=== PATIENT | male | born 1970 | race Caucasian/White ===

== ENCOUNTER 2016-09-17 21:25 | Inpatient (IN) | payer OTHER ==
--- NOTE | ~2016-09-17 | HP ---
Unit #: [id number] #: [id number] Patient: MICHEL GARCIA [id number] [place] [address] [id number] I MR#: [id number] NAME: MICHEL GARCIA ROOM: P183 Age: 46 Sex: M Admission Date: 09/17/2016 : 1970 Attending Physician: Uday Wu M.D. Admitting Physician: Uday Wu M.D. Primary Care Physician: Primary Care Physician No HISTORY AND PHYSICAL HISTORY OF PRESENT ILLNESS Michel is a 46 year old admitted to [facility] because of his abuse of alcohol. PAST MEDICAL HISTORY 1. Long history of alcohol abuse. 2. History of withdrawal seizures. 3. History of head and neck cancer. a. Resection left side of his neck, 2015 with muscle graft from his left arm. PAST SURGICAL HISTORY As above ALLERGIES No known drug allergies. SOCIAL HISTORY He smokes one-half pack per day. Drinks at least a six pack on a daily basis and denies illicit drug use. FAMILY HISTORY Medically noncontributory. REVIEW OF SYSTEMS CONSTITUTIONAL: No fever or chills. HEENT: Denies any sore throat, ear pain or runny nose. CARDIOVASCULAR: Denies chest pain, irregular heart rhythm or palpitations. CHEST: Denies shortness of breath or cough. No hemoptysis. GASTROINTESTINAL: Denies nausea, vomiting, diarrhea or chronic constipation. ENDOCRINE: Denies history of increased thirst or urination. No recent significant weight loss or gain. GENITOURINARY: Denies dysuria, frequency, or hematuria. SKIN: Denies any rashes. HEMATOLOGIC: Denies history of increased bleeding or bruising. MUSCULOSKELETAL: Denies any hot, swollen joints. No generalized muscle pain. NEUROLOGIC: Denies problems with vision or speech. No frequent, severe headaches. No numbness, tingling or weakness in any extremities. Denies loss of bladder or bowel control. CURRENT MEDICATIONS Detox protocol Unit #: [id number] #: [id number] Patient: MICHEL GARCIA PHYSICAL EXAMINATION GENERAL: Alert, well-nourished, in no apparent distress. VITAL SIGNS: Blood pressure 117/84, heart rate 80, respirations 16, temperature 98.6. WEIGHT: 147 pounds. HEIGHT: 5'7". SKIN: Warm and dry without rash or lesion. HEENT: Normocephalic. TMs not viewed. Oral and nasal passages clear. Conjunctivae clear. Pupils equal, round and reactive to light and accommodation. Extraocular movements intact. NECK: Supple without lymphadenopathy or thyromegaly. HEART: Regular rate and rhythm without murmur. LUNGS: Clear. ABDOMEN: Soft, nontender. : Not done. EXTREMITIES: No evidence of cyanosis, clubbing or edema. Moves all extremities without focal deficit. NEUROLOGICAL: Grossly within normal limits. Cranial Nerves: II: Visual grimes are intact. III, IV AND : Extraocular movements are intact. Pupils are equal, round and reactive to light. V: Facial sensation is grossly normal. VII: Facial movements and expression are normal. VIII: Auditory acuity grossly intact. IX, X: Uvula is midline. Phonation is normal. XI: Patient shrugs shoulders and turns head normally. XII: Tongue protrudes in the midline. Sensory and Motor Function: Sensory and motor sensation is grossly normal. Motor: moves all extremities well. Coordination: Gait is normal. Deep Tendon Reflexes: Intact. IMPRESSION Psychiatric admission RECOMMENDATIONS PSYCHIATRIC: Per psychiatrist. MEDICAL: I see no contraindications to participating in facility's activities. MEDICAL PROGNOSIS Good. MEDICAL CONDITION Stable. Dictated by... Maricel DoeAKashif-Thais. for Sridevi Irene/patricia TD: 09/19/2016 00:38 JOB #: [id number] Unit #: [id number] #: [id number] Patient: MICHEL GARCIA HISTORY AND PHYSICAL X Maryanne Ceja HISTORY AND PHYSICAL
--- NOTE | ~2016-09-17 | DS ---
Unit #: [id number] #: [id number] [facility]: [facility] [id number] [facility] [address] [place] [address] [id number] I MR#: [id number] NAME: MICHEL GARCIA ROOM: [facility] Age: 46 Sex: M Admission Date: 09/17/2016 : 1970 Discharge Date: 09/21/2016 Attending Physician: Uday Wu M.D. Primary Care Physician: Primary Care Physician No DISCHARGE SUMMARY IDENTIFYING DATA Mr. Garcia is a 46-year-old white male, who was self-referred to the hospital. DISCHARGE DIAGNOSES Psychiatric: Alcohol dependence, moderate, in acute withdrawals; alcohol-induced mood disorder. Medical: Alcohol withdrawal seizure. Stressors: Moderate psychosocial stressors. HISTORY OF PRESENT ILLNESS Please see initial psychiatric evaluation for details. PAST PSYCHIATRIC HISTORY Please see initial psychiatric evaluation for details. PAST MEDICAL HISTORY Please see initial psychiatric evaluation for details. HOSPITAL COURSE The patient was admitted to the adult chemical dependency unit at [facility] and was oriented to the hospital environment. Routine p.r.n. medications were initiated, and he was started on alcohol detox protocol and was seem to be actively detoxing and having some hallucinations and Seroquel was started as an antipsychotic to help him with sleep as he was , however, he was decompensating and with significant medical complication was sent out from the Emergency Room at [facility] where he did end up getting hospitalized and as such was discharged from my care. DISCHARGE MEDICATIONS None. DISCHARGE CONDITION Stable. PROGNOSIS Guarded. Dictated by... Uday Wu M.D. IAA/modl Unit #: [id number] #: [id number] Patient: MICHEL GARCIA TD: 10/25/2016 00:31 JOB #: [id number] DISCHARGE SUMMARY Page 1 of 1 X Uday Wu MD X DISCHARGE SUMMARY
--- NOTE | ~2016-09-17 | PN ---
Unit #: [id number] #: [id number] Patient: MICHEL GARCIA [id number] [facility] [address] [place] [address] [id number] I MR#: [id number] NAME: MICHEL GARCIA ROOM: P174 Age: 46 Sex: M Admission Date: 09/17/2016 : 1970 Attending Physician: Uday Wu M.D. Admitting Physician: Uday Wu M.D. Primary Care Physician: Primary Care Physician Bharti GOMEZ NOTES DATE OF SERVICE: 09/19/2016 SUBJECTIVE Mr. Garcia is a 46-year-old white male with substance abuse and mood disorder, who was seen today and chart was reviewed, and case was discussed with the staff. He was seen to be anxious, withdrawn, and in distress and discomfort as he goes through detox. Meanwhile, he has been cooperative with treatment recommendations and has been taking medications and tolerating them fairly well with no reported side effects. MENTAL STATUS EXAMINATION Middle-aged white male, who was casually dressed with fair personal hygiene, appears to be in no acute distress or discomfort. He was awake and alert on interaction with intact orientation. His mood was anxious with a congruent affect. He denies any suicidal or homicidal ideations. His insight and judgment remain slightly impaired. TREATMENT PLAN 1. We will continue on his current medications and treatment protocol. We will monitor his response to medications and make further adjustments as needed. 2. We will continue to follow up. Dictated by... Sridevi Wu/enzo TD: 09/20/2016 02:25 JOB #: [id number] MARIA LUZ PROGRESS NOTES X Uday Wu MD PROGRESS NOTE
--- NOTE | ~2016-09-17 | PN ---
Unit #: [id number] #: [id number] Patient: MICHEL GARCIA [id number] [facility] [address] [place] [address] [id number] I MR#: [id number] NAME: MICHEL GARCIA ROOM: P174 Age: 46 Sex: M Admission Date: 09/17/2016 : 1970 Attending Physician: Uday Wu M.D. Admitting Physician: Uday Wu M.D. Primary Care Physician: Primary Care Physician Bharti GOMEZ NOTES DATE OF SERVICE: 09/21/2016 SUBJECTIVE Mr. Garcia is a 46-year-old white male, who was seen today and chart was reviewed, and case was discussed with the staff. He was with acute delirium tremens with confusion, disorientation, and has been on one-to-one level of precaution, once again with lying on bed and was pricking pins and we have also initiated Seroquel and appears that he has slept somewhat better than the night before, as such we will continue him on his current level of precautions and we will monitor his response and make further adjustments as needed. Dictated by... Sridevi Wu/veral TD: 09/21/2016 23:11 JOB #: [id number] MARIA LUZ GOMEZ NOTES X Uday Wu MD PROGRESS NOTE
--- NOTE | ~2016-09-17 | PA ---
Unit #: [id number] #: [id number] Patient: MICHEL GARCIA [id number] [facility] [address] [place] [address] [id number] I MR#: [id number] NAME: MICHEL GARCIA ROOM: P183 Age: 46 Sex: M Admission Date: 09/17/2016 : 1970 Date of Assessment: Attending Physician: Uday Wu M.D. Admitting Physician: Uday Wu M.D. Primary Care Physician: Primary Care Physician No PSYCHIATRIC ASSESSMENT DATE OF SERVICE 09/18/2016 IDENTIFYING DATA Mr. Garcia is a 46-year-old white male who is a resident of [place], [place] and was brought to the hospital by his son and his sister. CHIEF COMPLAINT "I'm drinking vodka." HISTORY OF PRESENT ILLNESS Mr. Garcia is a 46-year-old white male with a history of alcohol dependence, who was brought to the hospital by his family with a blood alcohol level of 0.221 and he reports that he is here for his alcohol use and that he drinks 2 to 3 shots of vodka and drinks beer and reports that he may have had some shots as well today, but he cannot recall. He reports that he drinks about a half a gallon of vodka a day with mixed orange juice as well as beer. The patient reports that drinking has been an issue for him for over 20 or 30 years and reports that he was diagnosed with throat cancer and he had surgery on his left side of the throat and wisdom teeth were taken out and had a metal placed in his face and jaw and due to this, the patient reports that he was on pain medication. He stopped drinking and however, they stopped his pain medication. He began drinking to help with the pain. He reports that he still requires a surgery in the neck to remove lymph nodes, but they would not do it until he was detoxicated from alcohol. He reports he has a history of severe withdrawal seizures, dysphoric feelings like needles in his arms and each in his body, sensitive to light, anxiety, and restlessness and as such, recommendation for inpatient level of care for medical detoxification was made. SUBSTANCE ABUSE HISTORY The patient reports alcohol to be his drug of choice. He reports that he has been drinking since he was 14 years old and currently he has been drinking half a gallon of vodka with mixed drinks and some beers. He denies any other drug abuse. PAST PSYCHIATRIC HISTORY The patient has not had any prior inpatient or outpatient psychiatric or chemical dependency treatment. Review of the medical records indicate that currently he is not active in any treatment program. He is not seeing a psychiatrist and he is not taking any psychotropic medications. Unit #: [id number] #: [id number] Patient: MICHEL GARCIA PAST MEDICAL HISTORY Significant for a history of throat cancer and arthritis. ALLERGIES No known medication allergies. PERSONAL AND SOCIAL HISTORY A 46-year-old white male who reports that he is and lives at home with his son, and he has fairly decent social support system. MENTAL STATUS EXAMINATION Middle-aged white male who was casually dressed with a fair personal hygiene and appears to be in no acute distress or discomfort. He was awake and alert on interaction with intact orientation to time, place, and person. His mood was anxious and depressed with a congruent affect. His speech is slow and goal directed. He denies any suicidal or homicidal ideations, and also denies any auditory or visual hallucinations. His insight and judgment remain significantly impaired. DIAGNOSTIC IMPRESSION Psychiatric: Alcohol dependence, moderate, in acute withdrawal. Alcohol-induced mood disorder. Medical: Arthritis, history of throat cancer. Stressors: Moderate psychosocial stressors. TREATMENT PLAN 1. The patient has presented with a history of substance abuse and mood disorder, and has been decompensating and will need inpatient hospitalization for detoxification, safety, and stabilization. We will start him back on his home medications. We will adjust the medications and monitor response. 2. Supportive therapy was provided to the patient. 3. Safe, structured, and nourishing environment will be provided. ESTIMATED LENGTH OF STAY 4 to 5 days. ABILITY TO HELP SELF Limited. WILLINGNESS TO HELP SELF The patient appears to be willing to help self. STRENGTHS 1. Communicative. 2. Cooperative. PROBLEMS 1. Chronic dysphoric symptoms. 2. Chronic chemical dependency. 3. Poor social support system. DISCHARGE CRITERIA This will be contingent upon the patient's ability to go through detox without having any significant withdrawal symptoms as well as his ability Unit #: [id number] #: [id number] Patient: MICHEL GARCIA to stay safe to himself, particularly after discharge from the hospital. Dictated by... Sridevi Wu/enzo TD: 09/19/2016 02:03 JOB #: [id number] PSYCHIATRIC ASSESSMENT X Uday Wu MD PSYCHIATRIC ASSESSMENT
--- NOTE | ~2016-09-17 | PN ---
Unit #: [id number] #: [id number] Patient: MICHEL GARCIA [id number] [facility] [address] [place] [address] [id number] I MR#: [id number] NAME: MICHEL GARCIA ROOM: P174 Age: 46 Sex: M Admission Date: 09/17/2016 : 1970 Attending Physician: Uday Wu M.D. Admitting Physician: Uday Wu M.D. Primary Care Physician: Primary Care Physician Bharti GOMEZ NOTES DATE OF SERVICE 09/20/2016 DISCUSSION Mr. Garcia is a 46-year-old white male who was seen today. Chart was reviewed and case was discussed with the staff. He has effectively gone into delirium tremens episode as of last night and has been confused and anxious and has been placed on one-to-one level of precaution. (1) __ staff informed me that he has been up all night long, and despite getting 3 mg of Ativan at a time, he has not been able to calm down. He was lying in the bed with legs hanging down, touching the floor, and his body on the bed, and he is reaching out for things and picking on things and was constantly moving and was restless, and was confused, disoriented, and unable to (2) __ carry on any meaningful conversation. As such appears to be having significant complications as part of his alcohol detox. We will recommend initiating further medication. We will maintain the alcohol detox protocol with high-dose Ativan to protect brain and body. We will also initiate Seroquel to keep his agitation and aggression and hopefully help his brain get some sleep and rest. We will maintain him on one-to-one level of precaution. We will continue further treatment. Dictated by... Sridevi Wu/mario TD: 09/21/2016 08:24 JOB #: [id number] MARIA LUZ PROGRESS NOTES X Uday Wu MD PROGRESS NOTE
--- NOTE | ~2016-09-17 | A ---
[facility] DATE: 09/18/16 Patient: MICHEL GARCIA Physician: DOMINIQUE Address: [address] [place] [address] 2 Room/Bed: [address], Zip: [place] [address] Admit Date: 09/17/16 Date of : [birth year] Height: 5 7 Weight: [id number] NUTRITIONAL ASSESSMENT: REASON: 2 NUTRITIONAL RISK POINTS- UNINTENTIONAL WEIGHT LOSS, CHEWING/SWALLOWING DIFFIULTIES PATIENT ADMITTED FOR ETOH DETOX PMH: HX OF THROAT CANCER WITH CANCER CURRENTLY IN LYMPH NODES, HX WITHDRAWAL SEIZURES, ARTHRITIS, LONG HX ETOH ABUSE Anthropometrics: HT: 5'7", WT: 147#, BMI: 23, %IBW: 99 Labs: 09/18/16: GLU: 61, BUN <5, CREA: 0.4, CA: 8.3, ALB: 2.8 Meds: DESYREL, MVI, DETOX PROTOCOL Assessment: CHART REVIEWED, EVENTS NOTED. PATIENT IS A 46 Y/O MALE ADMITTED FOR ETOH DETOX. PATIENT IS CURRENTLY ON DISABILITY, LIVES ALONE, SMOKES 1/2 PPD, AND HAS HAD DAILY ETOH USE FOR 20-30 YEARS. PATIENT STOPPED DRINKING 2 YEARS AGO D/T CANCER DX AND HAS STARTED DRINKING AGAIN 6 MONTHS AGO. PATIENT HAD SURGERY ON LEFT SIDE OF FACE D/T THROAT CANCER AND NOW HAS A METAL PLATE AND DENTURES. PATIENT IS DETOXING FROM ETOH D/T NEEDING ANOTHER ANOTHER SURGERY TO REMOVE LYMPH NODES. PATIENT STATED A POOR APPETITE WITH A 50# WEIGHT LOSS OVER LAST SEVERAL MONTHS. CURRENT PO INTAKES ARE UNAVAILABLE. PATIENT HAD FEEDING TUBE REMOVED 3 MONTHS AGO AND EXPERIENCES PAIN FROM SITE. PATIENT IS ON A MECHANICAL SOFT DIET WITH NO CAFFEINE, AND RECEIVES LARGE PORTION ENTREES, FRUITS, AND VEGETABLES. PATIENT'S BMI IS WITHIN A HEALTHY RANGE AND HE IS 99% OF HIS IBW. WILL CONTINUE TO MONITOR PO INTAKES AND WEIGHT. DESYREL AND DETOX MAY CAUSE AN INCREASE IN WEIGHT AND APPETITE. Dx: INADEQUATE NUTRIENT INTAKE R/T CURRENT CONDITION AEB DECREASED APPETITE, WEIGHT LOSS, 2 NUTRITIONAL RISK POINTS Intervention: 1. MECHANICAL SOFT DIET, 2. LARGE PORTIONS, 3. MEDS PER MD, 4. DETOX, 5. PSYCH Monitoring, Evaluation and Goals: 1. ADEQUATE PO INTAKES >50% OF MEALS 2. PREVENT, CORRECT MICRO/MACRO NUTRIENT DEFICIENCIES 3. MAINTAIN CURRENT WEIGHT, PREVENT FUTHER WEIGHT LOSS MONITOR: WEIGHTS, LABS, PO/FLUID INTAKES [facility] DATE: 09/18/16 Patient: MICHEL GARCIA Physician: DOMINIQUE Address: [address] [place] [address] 2 Room/Bed: P183-2 [facility], Zip: [place] [address] Admit Date: 09/17/16 Date of : [birth year] Height: 5 7 Weight: [phone] Recommendations: 1. CONTINUE MECHANICAL SOFT DIET WITH LARGE PORTIONS TOLERATED. IF PATIENT HAS C/O CHEWING/SWALLOWING DIFFICULTIES PLEASE CONSULT CAST IRON DRAIN PIPE LAYER FOR FURTHER ASSESSMENT 2. ENCOURAGE ADEQUATE PO AND FLUID INTAKES 3. OBTAIN WEIGHTS ROUTINELY EVERY 3-4 DAYS D/T HX OF SEVERE WEIGHT LOSS 4. IF PO INTAKES FALL BELOW 50% OF MEALS PLEASE ORDER ENSURE BID TO PROMOTE ADEQUATE KCAL AND PROTEIN INTAKES 5. RD TO F/U WITH PO INTAKES AND WEIGHT RD TO F/U PER PROTOCOL AND PRN R/T PATIENT MODERATELY COMPROMISED Respectfully, DIAN SALDIVAR, AMY, LD [facility] cc: client file
[2016-09-18 12:24] LABS: BASOPHIL% 0.8 % (0-2.5); EOSINOPHIL# 0.1 X10e3 (0-0.7); EOSINOPHIL% 2.9 % (0.0-7.0); HEMATOCRIT 36.6 % (38.0-50.0); LYMPHOCYTE# 0.8 X10e3 (1.0-3.5); LYMPHOCYTE% 16.1 % (17.0-45.0); MEAN CELL VOLUME 100.1 FL (83-96); MEAN CORPUSCULAR HEMOGLOBIN 32.8 PG (28-34); MEAN CORPUSCULAR HGB CONC 32.7 g/dL (30-36); MEAN PLATELET VOLUME 7.8 FL (6.5-11.5); MONOCYTE# 0.7 X10e3 (0-1.0); MONOCYTE% 14.5 % (3.0-12.0); NEUTROPHIL# 3.1 X10e3 (1.5-7.1); NEUTROPHIL% 65.7 % (40-75); PLATELET COUNT 109 X10e3 (140-420); RED BLOOD COUNT 3.66 X10e (3.90-5.60); RED CELL DISTRIBUTION WIDTH 16.6 % (11.0-15.5); WHITE BLOOD COUNT 4.7 X10e3 (4.0-10.5)
[2016-09-18 12:41] LABS: DIFF IND NO
[2016-09-18 12:51] LABS: THYROID STIMULATING HORMONE 6.93 uIU/ml (0.34-5.60)
[2016-09-18 12:58] LABS: FREE THYROXIN (T4) 0.82 ng/dL (0.58-1.64)
[2016-09-18 13:01] LABS: ALBUMIN SERUM 2.8 g/dL (3.5-5.0); ALKALINE PHOSPHATASE 124 U/L (32-92); ALT (SGPT) 17 U/L (10-40); AST (SGOT) 76 U/L (10-42); BILIRUBIN,TOTAL 1.3 mg/dL (0.2-2.0); BLOOD UREA NITROGEN <5 mg/dL (9-23); CALCIUM SERUM 8.3 mg/dL (8.4-10.2); CARBON DIOXIDE 26 mmol/L (22-31); CHLORIDE 100 mmol/L (100-111); CREATININE SERUM 0.4 mg/dL (0.6-1.4); GLOM FILT RATE Estimated ABOVE60 mL/min (>60); GLUCOSE FASTING 61 mg/dL (70-110); POTASSIUM 4.3 mmol/L (3.5-5.1); PROTEIN TOTAL SERUM 6.1 g/dL (6.0-8.3); SODIUM 139 mmol/L (135-145)
[2016-09-21 09:27] LABS: URINE APPEARANCE CLEAR; URINE BILIRUBIN NEG (NEG); URINE BLOOD NEG (NEG); URINE COLOR DK YELLOW; URINE GLUCOSE NEG (NEG); URINE KETONE NEG (NEG); URINE LEUKOCYTE ESTERASE NEG (NEG); URINE NITRATE NEG (NEG); URINE PROTEIN NEG (NEG); URINE SPECIFIC GRAVITY 1.009 (1.003-1.035)
[2016-09-21 10:07] LABS: AMPHETAMINE NEG (NEG); BARBITURATES NEG (NEG); BENZODIAZEPINES POS (NEG); COCAINE NEG (NEG); MARIJUANA POS (NEG); OPIATES NEG (NEG); TRICYCLIC ANTIDEPRESSANTS NEG (NEG); U METHADONE NEG (NEG)
== END 2016-09-21 23:20 | disposition short-term general hospital (02) | DRG 897 ==
LOC: P1E 21:25 → POF 09-18 12:48 → P1E 09-18 12:55
PROVIDERS: Psychiatry & Neurology Psychiatry
PROC: HZ2ZZZZ Detoxification Services for Substance Abuse Treatment (ICD-10-PCS; principal; 2016-09-17)
DX: F10.239 Alcohol dependence with withdrawal, unspecified (principal); F10.24 Alcohol dependence with alcohol-induced mood disorder; M19.90 Unspecified osteoarthritis, unspecified site; F17.210 Nicotine dependence, cigarettes, uncomplicated
CPT/HCPCS: 80053; 80307; 81003; 82947; 84439; 84443; 85025; 86592